=== PATIENT | female | born 1970 | race Caucasian/White ===

== ENCOUNTER 2017-12-28 21:03 | Emergency (ER) | payer OTHER, MEDICAID ==
[~2017-12-28] VITALS: Ht 168 cm; Wt 117.9 kg
[~2017-12-28 21:03] MED LIST: ATORVASTATIN CA40 MG PO; CORTEF5 MG PO; CYMBALTA60 MG PO; FLOMAX0.4 MG PO; LEVOTHYROXINE100 MC1 PO; LISINOPRIL10 MG PO; NAPROSYN375 MG PO; NORCO 5-325 TA1 EACH PO; ONDANSETRON HCL4 M2 PO; SINGULAIR 10 MG10 M1 PO; TIZANIDINE PO
[2017-12-28 21:43] LABS: URINE BILIRUBIN NEGATIVE (Negative); URINE BLOOD NEGATIVE (Negative); URINE CLARITY CLEAR; URINE COLOR YELLOW; URINE GLUCOSE-RANDOM NEGATIVE (Negative); URINE KETONES NEGATIVE (Negative); URINE LEUKOCYTES-REFLEX NEGATIVE (Negative); URINE NITRITE-REFLEX NEGATIVE (Negative); URINE PROTEIN NEGATIVE (Negative); URINE SPECIFIC GRAVITY 1.015 (1.005-1.030); URINE UROBILINOGEN 0.2 E.U./dl (0.2-1.0)
[2017-12-28] MEDS ORDERED: FLAGYL500 MG PO (22:23)
[2017-12-28 22:30] VITALS: BP 185/90
== END 2017-12-28 22:30 | disposition home or self-care (01) ==
LOC: M.ERS 21:03
PROVIDERS: Nurse Practitioner Family
DX: N76.0 Acute vaginitis (principal); B96.89 Other specified bacterial agents as the cause of diseases classified elsewhere; E03.9 Hypothyroidism, unspecified; J45.909 Unspecified asthma, uncomplicated; M79.7 Fibromyalgia; I10 Essential (primary) hypertension; Z90.49 Acquired absence of other specified parts of digestive tract; Z88.8 Allergy status to other drugs, medicaments and biological substances; Z88.5 Allergy status to narcotic agent; Z88.2 Allergy status to sulfonamides

== ENCOUNTER 2018-02-04 19:14 | Inpatient (IN) | payer OTHER ==
[~2018-02-04] VITALS: Ht 168 cm; Wt 127.9 kg
[~2018-02-04 19:14] MED LIST changes: +FLAGYL500 MG PO
[2018-02-04 19:18] VITALS: BP 126/68
[2018-02-04 19:46] LABS: ABSOLUTE EOSINOPHILS 0.2 thou/uL (0.0-0.7); ABSOLUTE LYMPHOCYTES 2.7 thou/uL (0.8-5.3); ABSOLUTE MONOCYTES 0.6 thou/uL (0.0-1.2); BASOPHILS 0.2 %; EOSINOPHILS 1.6 %; HEMATOCRIT 46.8 % (37.0-47.0); HEMOGLOBIN 15.4 gm/dL (12.0-15.0); LYMPHOCYTES 28.6 %; MCH 27.7 pg (26.0-34.0); MCHC 32.9 g/dL (28.0-37.0); MCV 84.1 fL (80.0-100.0); MONOCYTES 6.7 %; MPV 7.3 fl. (7.2-11.1); NUCLEATED RBCS 0 /100WBC; PLATELET COUNT* 380 thou/uL (150-400); POLYS 62.9 %; RBC 5.57 mil/uL (4.20-5.00); WBC 9.5 thou/uL (4.0-11.0)
[2018-02-04 19:54] LABS: CALCIUM 9.5 mg/dL (8.5-10.1); CREATININE 0.9 mg/dL (0.6-1.3); POTASSIUM 4.2 mmol/L (3.5-5.1)
[2018-02-04 20:01] LABS: ALBUMIN 3.3 g/dL (3.4-5.0); TOTAL BILIRUBIN 0.5 mg/dL (<0.1-1.0); TROPONIN-I LEVEL 0.08 ng/mL (<0.06)
[2018-02-04 21:18] LABS: CHOLESTEROL 279 mg/dL (<200); HDL CHOLESTEROL 48 mg/dL (>40); TC:HDL 5.8 Ratio (Not establshd); TRIGLYCERIDE 553 mg/dL (<150); VLDL 111 mg/dL (<40)
[2018-02-04 21:24] LABS: LDL CHOLESTEROL ND mg/dL (<100)
[2018-02-04 21:25] VITALS: BP 114/67
[2018-02-04 21:25] LABS: SERUM ASSESSMENT Slight Lipemia
[2018-02-04 21:30] VITALS: BP 133/72
[2018-02-05] VITALS (15 sets, daily range): BP systolic 118–177; BP diastolic 58–95
--- NOTE | 2018-02-05 00:30 | NUR ---
PATIENT GOT ADMITTED TONIGHT FROM THE ER TO THE TELE FLOOR IN ROOM 226. ACCOMPANIED BY ER NURSE, ON A STRETCHER AND OXYGEN VIA NC AT 2LITERS. PT IS ALERT, AWAKE, ORIENTED X4. SHE STATED THAT SHE HAS BEEN FEELING SOA SINCE 06:OOPM BEFORE SHE HEADED TO THE ER. SHE IS PRESENTLY BREATHIN REGULARLY AND UNLABORED, ON O2 NC SATURATION IS 98%. SHE DOES NOT COMPLAIN OF ANY PAIN AT ALL. VITAL SIGNS ARE WITHIN NORMAL LIMIT. ASSESSMENT PERFOREMED AND ADMISSION HX COMPLETED. REFER OT CHARTING. PT SKIN IS INTACT. IV LINE IS PATENT. SHE IS GETTING HEPARIN AT 15CC/HR WHICH STARTED IN THE ER. APPT LAB IS SCHEDULED FOR 03:00 AM. SEE ORDER. SHE HAS TROPONIN LAB DRAWED PRIOR TO COMING ON THE FLOOR. HER PREVIOUS TROPONIN LEVEL WERE RESPECTIVELY 0.08, 0.20. heR MOST RECENT TROPONIN DRWNED WHILE ON THE TELE FLOOR IS 1.31. DR MCFADDEN (CONSULT AND CARIDIOLOGY TUCKPOINTER CLEANER CAULKER ) WAS CALLED. [facility] WILDLIFE REMOVAL SPECIALIST. AWAITING CALL BACK FROM DR. MCFADDEN. PT IS ASYMPTOMATIC. NO PAIN . SINUS RYTHM ON THE MONITOR. HEART RATE IS CONTROLLED. SCDS ON, CALL LIGHT AT REACH, SCHEDULED MEDS ADMISNISTERED, PAPERS PLACED IN CHART, LAB ORDERED FOR THE MORNIMG. WILL CONTINUE TO MONITOR.
[2018-02-05 02:51] LABS: HEMATOCRIT 44.3 % (37.0-47.0); HEMOGLOBIN 14.6 gm/dL (12.0-15.0); MCH 27.7 pg (26.0-34.0); MCHC 32.9 g/dL (28.0-37.0); MCV 84.3 fL (80.0-100.0); MPV 7.2 fl. (7.2-11.1); RBC 5.25 mil/uL (4.20-5.00); RDW-CV 14.4 % (10.5-14.5)
[2018-02-05 03:29] LABS: APTT 42.2 Seconds (25.0-31.3); PROTIME 9.9 Seconds (9.20-11.50)
--- NOTE | 2018-02-05 04:25 | NUR ---
NEW TROPONIN CRITICAL LEVEL OF 3.14. DR MCFADDEN AND TIMOTHY ARE PAGED. AWAITING SHUKRI BACK. PT IS ASYMTOMATIC, VITAL SIGHS WITHN NORMAL LIMIT. SR ON THE MONITOR. HEPARIN STILL GOIG ON AT 15CC/HR. WILL E AWAITNG CALL BACK.
--- NOTE | 2018-02-05 05:59 | NUR ---
APPT LAB RESULT IS 42.2. HEPARIN DRIP RATE INCREASED BY 3 ML/HR. BOLUS OF 3.9 ML OF HEPARIN GIVEN PER PROTOCOL. CURRENT RATE IS 18ML/HR.
--- NOTE | 2018-02-05 06:35 | NUR ---
DR MCFADDEN CALLED BACK . AND SAYS HE WILL SEE THE DOCTOR THIS MORNING. NEW LAB DRAW FOR APTT ORDERED PER PROTOCOL FOR 12:00PM. PT OSMELAISSpenser ASYMPTOMATIC, SR ON THE MONITOR. WILL CONTINUE TO MONITOR.
[2018-02-05 06:46] LABS: POTASSIUM 3.9 mmol/L (3.5-5.1)
[2018-02-05 06:47] LABS: CALCIUM 8.8 mg/dL (8.5-10.1); CREATININE 0.7 mg/dL (0.6-1.3); MAGNESIUM 1.9 mg/dL (1.8-2.4)
--- NOTE | 2018-02-05 07:15 | NUR ---
ASSUMED CARE OF PT ASSESSED AND DOCUMENTED. PT IS TRACING NSR ON CARDIAC MONITER HR 77. PT IS A&O. SHE IS ON 2L OF 02. SHE C/O NECK PAIN RATES A 4 ON PAIN SCALE. SHE DENIES NEED FOR PAIN MEDICATION. PT IS A FEBRILE. SHE CONT ON HEPARIN GTT. BED IS IN LOW POSITION CALL LIGHT IS IN REACH. WM.
--- NOTE | 2018-02-05 07:50 | NUR ---
PT REFUSES MEDICATION. THE ONLY MED SHE WOULD TAKE IS SYNTHROID.
--- NOTE | 2018-02-05 08:45 | NUR ---
TOLD DR AGUIRRE ABOUT PT STATING SHE HAS AN ALLERGY TO LISENOPRIL AND IT MADE HER THROAT SWELL. PT ALSO REFUSED OTHER MEDSA SHE WAS NPO AND STATED IT WOULD MAKE HER SICK. CALLED ADMITTING LM TC ME RE ALLERGY THAT NEEDS TO BE PLACED ON RECORD.
--- NOTE | 2018-02-05 10:17 | 2DMMODE ---
[place] [address] 2 D/M-MODE ECHOCARDIOGRAM Name: JORGE DE LA GARZALIA Room: [address] IN .R.#: [id number] Admission: 02/04/18 Attend Phys: Alok Machuca, Discharge: Date of : 72 Date of Service: 02/05/18 1017 Report #: [id number] THIS REPORT FOR: //name// APPROVED REPORT Study performed: 02/05/2018 09:01:43 EXAM: Comprehensive 2D, Doppler, and color-flow Echocardiogram Patient Location: Bedside BSA: 2.24 HR: 76 bpm BP: 158/58 mmHg Other Information Study Quality: Fair Indications Chest Pain 2D Dimensions LVEF(%): 61.64 (>50%) IVSd: 11.95 (7-11mm) LVOT Diam: 20.13 (18-24mm) LVDd: 46.07 mm PWd: 11.55 (7-11mm) Ascending Ao: 31.01 (22-36mm) LVDs: 30.85 (25-40mm) Aortic Root: 30.13 mm Scott's LVEF: 61.64 % Volumes Left Atrial Volume (Systole) LA ESV Index: 15.90 mL/m2 Aortic Valve AoV Peak Andrews.: 1.11 m/s AO Peak Gr.: 4.95 mmHg LVOT Max P.38 mmHg AO Mean Gr.: 2.86 mmHg LVOT Mean P.42 mmHg LVOT Max V: 0.92 m/s AO V2 VTI: 18.62 cm LVOT Mean V: 0.54 m/s MO (VTI): 3.12 cm2 LVOT V1 VTI: 18.27 cm Mitral Valve E/A Ratio: 0.94 MV Decel. Time: 238.27 ms MV E Max Andrews.: 0.71 m/[place] [address] 2 D/M-MODE ECHOCARDIOGRAM Name: EUSEBIO DE LA GARZA Room: [address] IN [facility].#: [id number] Admission: 02/04/18 Attend Phys: Alok Machuca, Discharge: Date of : 72 Date of Service: 02/05/18 1017 Report #: [id number] MV PHT: 69.10 ms MVA (PHT): 3.18 cm2 TDI E/Lateral E': 7.89 E/Medial E': 7.89 Medial E' Andrews.: 0.09 m/s Lateral E' Andrews.: 0.09 m/s Pulmonary Valve PV Peak Andrews.: 1.18 m/s PV Peak Gr.: 5.53 mmHg Tricuspid Valve RAP Estimate: 5.00 mmHg TR Peak Gr.: 17.13 mmHg RVSP: 22.13 mmHg PA Pressure: 22.13 mmHg Left Ventricle The left ventricle is normal size. There is normal LV segmental wall motion. There is normal left ventricular wall thickness. Left ventricular systolic function is normal. LVEF is 60-65%. The left ventricular diastolic function is normal. Right Ventricle The right ventricle is normal size. The right ventricular systolic function is normal. Atria The left atrium size is normal. Interatrial septum not well visualized. The right atrium size is normal. Aortic Valve The aortic valve is normal in structure. No aortic regurgitation is present. There is no aortic valvular stenosis. Mitral Valve The mitral valve is normal in structure. There is no mitral valve regurgitation noted. No evidence of mitral valve stenosis. Tricuspid Valve The tricuspid valve is normal in structure. Trace tricuspid regurgitation. Pulmonic Valve The pulmonary valve is normal in structure. There is no pulmonic valvular [place] [address] 2 D/M-MODE ECHOCARDIOGRAM Name: EUSEBIO DE LA GARZA Room: [address] IN ..#: [id number] Admission: 02/04/18 Attend Phys: Alok Machuca, Discharge: Date of : 72 Date of Service: 02/05/18 1017 Report #: [id number] Great Vessels The aortic root is normal in size. IVC is not visualized. Pericardium There is no pericardial effusion. <Conclusion> The left ventricle is normal size. There is normal left ventricular wall thickness. Left ventricular systolic function is normal. LVEF is 60-65%. The left ventricular diastolic function is normal. <ELECTRONICALLY SIGNED> By: Albaro Chen MD, FACC 02/05/18 1017 1017 1017 Albaro Chen MD, FACC /INF
--- NOTE | 2018-02-05 11:05 | EKG ---
[place] [address] ELECTROCARDIOGRAM REPORT Name: EUSEBIO DE LA GARZA Room: [address] ADM IN .R.#: [id number] Admission: 02/04/18 Attend Phys: Alok Machuca MD Discharge: Date of : 72 Report #: [id number] THIS REPORT FOR: //name// [facility] ED Test Date: 2018-02-04 Test Time: 19:24:51 Pat Name: EUSEBIO DE LA GARZA Department: Room: Gender: F Roll Scale Man: [facility] : 1970 Requested By: Keith Wright Order Number: [id number] MD: Jack Bowen Measurements Intervals [place] Rate: 159 P: MD: QRS: 71 QRSD: 82 T: 253 QT: 293 QTc: 477 Interpretive Statements Atrial fibrillation Repol abnrm suggests ischemia, diffuse leads Baseline wander in lead(s) V2,V3,V6 Compared to ECG 05/05/2015 16:48:37 Possible ischemia now present Sinus tachycardia no longer present Electronically Signed On 02-05-2018 11:04:58 CDT by Jack Bowen [email or web address] <ELECTRONICALLY SIGNED> By: Jack Bowen MD, [facility] 02/05/18 1104 1924 1924 Jack Bowen MD, [facility] /EPI
--- NOTE | 2018-02-05 11:05 | EKG ---
[place] [address] ELECTROCARDIOGRAM REPORT Name: EUSEBIO DE LA GARZA Room: [address] IN .R.#: [id number] Admission: 02/04/18 Attend Phys: Alok Machuca MD Discharge: Date of : 72 Report #: [id number] THIS REPORT FOR: //name// [facility] ED Test Date: 2018-02-04 Test Time: 20:40:21 Pat Name: EUSEBIO DE LA GARZA Department: Room: Gender: F Director Of Extension Work: RADHA Flores : 1970 Requested By: Ted Azul Order Number: [id number] MD: Jack Bowen Measurements Intervals [place] Rate: 86 P: 18 TX: 141 QRS: 81 QRSD: 94 T: 30 QT: 392 QTc: 469 Interpretive Statements Sinus rhythm Probable left atrial enlargement Borderline ST depression, lateral leads Baseline wander in lead(s) V1,V5 Electronically Signed On 02-05-2018 11:05:28 CDT by Jack Bowen [email or web address] <ELECTRONICALLY SIGNED> By: Jack Bowen MD, [facility] 02/05/18 1105 39 39 Jack Bowen MD, [facility] /EPI
--- NOTE | 2018-02-05 12:26 | NUR ---
PT OFF UNIT. UNABLE TO SEE
--- NOTE | 2018-02-05 14:49 | NUR ---
MET WITH PT TO DISCUSS HOME SITUATION/DC PLANNING. PT LIVES WITH SPOUSE. IS INDEPENDENT AND ACTIVE. WORKS IN A [employer]. PT USES NO EQUIPMENT. STATES FEELING IMPROVED TODAY, HOPES TO GO HOME SOON. DENIES DC NEEDS. WILL FOLLOW
--- NOTE | 2018-02-05 18:46 | NUR ---
ASSUMED CARE OF PT AT APPROX 1700, RECIEVED REPORT FROM SANNA VALLE. PT A/O X4, DENIES PAIN, RIGHT WRIST CATH SITE PRESSURE DECREASED AND THEN PRESSURE DEVICE REMOVED AT APPROX 1730. NO HEMATOMA OR BLEEDING NOTED. PT USING CALL LIGHT APPROPRIALTY FOR ASSISTANCE. AM ASSESMENT REVIWED BY THIS RN AND I AGREE WITH CHARTING. WILL CONTINUE WITH PLAN OF CARE.
[2018-02-05] MEDS ORDERED: TOPROL XL100 MG PO (20:56)
[2018-02-06] VITALS: BP 168/93
[2018-02-06 04:00] VITALS: BP 157/93
--- NOTE | 2018-02-06 06:39 | NUR ---
ASSUMED CARE OF PATIENT AT 1900 THE PATIENT REMAINS SR ON THE MONITOR O2 SAT MAINTAINED ON 2L NC FOR PATIENT COMFORT DURING SHIFT PATIENT COMPLAINED OF ACUTE EPISODE OF MILD CX PAIN MIDSTERNUM TO BACK RATED AT 4/10 EKG OBTAINED REMAINED SR PRIOR TO OCCURANCE PATIENT ATE 3 STRAWBERRY JELLO 3 THICKENED LEMON WATER PER HER REQUEST THICKENED LIQUIDS NOT NECESSARY DENIES HX OF GI UPSET WITH ACIDIC FRUIT/FOODS FLAVORS ADMINISTERED HYDROCODONE, ZOFRAN AND MELATONIN AT REASSESSMENT 30 MINUTES LATER PATIENT DENIED ALL DISCOMFORT AT 0345 PATIENT COMPLAINED OF SEVERE HEADACHE TYLENOL ADMINISTERED INEEFECTIVE APPLIED COOL TOWEL PATIENT STATES MADE WORST SHE REQUEST HEAT PACK AND DECLINED OPIOD INTERVENTION IN AM PRN ZOFRAN GIVEN PATIENT IN BED RESTING CONTINUES TO BE UP ADLIB THE ROUTINE ET PRN REGIMEN CONTINUES TO BE EFFECTIVE FOR SX MANAGEMENT SAFETY INTERVENTIONS CONTINUE BED LOWERED WHEELS LOCKED CALL LIGHT IN REACH SIDE RAILS UP RESUMING OF HOME MEDICATION METOPROLOL NEEDS TO BE VERIFIED WITH PHYSICIAN REPORT GIVEN TO ONCOMING LEONARD
[2018-02-06 09:00] VITALS: BP 174/99
[2018-02-06] MEDS ORDERED: SYNTHROID100 MC1 PO (09:16)
[2018-02-06] MEDS ORDERED: ASPIR 8181 MG PO (09:16)
[2018-02-06] MEDS ORDERED: ASPIRIN325 PO (09:18)
--- NOTE | 2018-02-06 10:05 | EKG ---
[place] [address] ELECTROCARDIOGRAM REPORT Name: EUSEBIO DE LA GARZA Room: [address] ADM IN M.R.#: [id number] Admission: 02/04/18 Attend Phys: Alok Machuca MD Discharge: Date of : 72 Report #: [id number] THIS REPORT FOR: //name// [facility] Test Date: 2018-02-05 Test Time: 23:24:39 Pat Name: EUSEBIO DE LA GARZA Department: Room: [address] Gender: F Kayak Maker: GHISLAINE : 1970 Requested By: Laura Monet Order Number: [id number] Reading MD: Jack Bowen Measurements Intervals [place] Rate: 89 P: 51 VT: 136 QRS: 82 QRSD: 100 T: 8 QT: 387 QTc: 471 Interpretive Statements Sinus rhythm Compared to ECG 02/04/2018 20:40:21 ST (T wave) deviation no longer present Electronically Signed On 02-06-2018 10:05:24 CDT by Jack Bowen [email or web address] <ELECTRONICALLY SIGNED> By: Jack Bowen MD, [facility] 02/06/18 1005 2324 23 Jack Bowen MD, [facility] /EPI
--- NOTE | 2018-02-06 10:32 | CON ---
[address] [address] CONSULTATION Name: EUSEBIO DE LA GARZA Room: [address] IN M.R.#: [id number] Admission: 02/04/18 Attend Phys: Alok Machuca MD Discharge: Date of : 72 Report #: [id number] THIS REPORT FOR: //name// CC: FAM physician/PCP Alok Machuca INDICATION: AFib RVR and non-ST elevation myocardial infarction. HISTORY OF PRESENT ILLNESS: The patient is a very pleasant 47-year-old white female, originally from [place] who has been living locally for the last 10 years. She has diabetes, hyperlipidemia, hypertension, and family history of coronary artery disease. Additionally, she has hypothyroidism. She has complaints of chest discomfort, weakness, and fatigue yesterday. She was seen in the emergency room and found to be in atrial fibrillation with a rapid ventricular response rate. She was given a diltiazem bolus and placed on a drip and converted to sinus rhythm. She is presently in sinus rhythm. Her chest pain has resolved. Her troponin peaked at 3. PAST MEDICAL HISTORY: 1. Type 2 diabetes mellitus. 2. Hypertension. 3. Dyslipidemia. 4. Fibromyalgia. 5. Hypothyroidism. 6. Nephrolithiasis. 7. Asthma. 8. Hiatal hernia. 9. Nuclear radiation exposure. FAMILY HISTORY: The patient's mother had coronary artery disease. SOCIAL HISTORY: The patient does not smoke. She does not drink alcohol. REVIEW OF SYSTEMS: As per HPI, otherwise unremarkable. PHYSICAL EXAMINATION: VITAL SIGNS: Stable. Blood pressure 158/58, pulse 76 and regular. GENERAL: This is a pleasant female, in no distress. Mood and affect appropriate. HEENT: Extraocular muscles intact. Mucous membranes moist. NECK: Shows no jugular venous distention. There are no carotid bruits. CHEST: Reveals clear lung galan without wheezes, rales, or rhonchi. CARDIOVASCULAR: Reveals a regular rhythm with normal S1 and S2. I do not appreciate gallop or murmur. ABDOMEN: Reveals normal bowel sounds. The abdomen is soft and nontender. EXTREMITIES: Shows no edema. Peripheral pulses 2+ [place] [address] CONSULTATION Name: EUSEBIO DE LA GARZA Room: [address] IN [facility].#: [id number] Admission: 02/04/18 Attend Phys: Alok Machuca MD Discharge: Date of : 72 Report #: [id number] SKIN: Warm and dry. IMPRESSION AND RECOMMENDATIONS: 1. New onset atrial fibrillation with rapid ventricular response. The patient now in sinus rhythm after diltiazem drip and bolus. We will continue diltiazem orally. The patient's CHADS score is 3 for female sex, hypertension and diabetes. She would benefit from long-term anticoagulation. We will start anticoagulation after cardiac catheterization. 2. Non-ST elevation myocardial infarction. The patient has multiple risk factors for coronary artery disease. We will proceed with coronary angiography at this time. 3. Hypertension. Blood pressure mildly elevated at this time. Hopefully, will improve with the addition of diltiazem. 4. Dyslipidemia. Fasting lipid profile pending. Continue statin agent. 5. Hypothyroidism, on replacement therapy. Thyroid function studies pending. <ELECTRONICALLY SIGNED> By: Albaro Chen MD, FACC 02/06/18 1032 0853 [id number] Lonnie Chen MD, FACC /nt
[2018-02-06 12:00] VITALS: BP 147/83
[2018-02-06] MEDS ORDERED: CARDIZEM CD240 MG PO (13:01)
[2018-02-06 13:52] VITALS: BP 158/58
[2018-02-06] MEDS ORDERED: XARELTO20 MG PO (15:22)
[2018-02-06 15:55] VITALS: BP 157/85
--- NOTE | 2018-02-06 16:41 | NUR ---
ASSUMED PT CARE AT 0730, FULL ASSESMENT DONE CHARTED. PT A/O X4, DROWSY, STATES SHE DID NOT SLEEP WELL, C/O BAD LEWIS, MIGRAINE, SHE STATES SHE HAD CHEST PAIN EARLY THIS AM, IT HAS RESOLVED. PT OFFERED PAIN MEDS, DENIES THE NEED FOR THEM. SHE SPOKE TO , RECIEVED ORDER FOR IMITREX, PT REFUSED IT THIS AM, BUT SHE REQUESTED IT THIS AFTERNOON. DISCHARGE ORDERS RECIEVED, CARDIOLOGY OK WITH DC TODAY. SCRIPTS GIVEN TO PT, JANINA SAMPLES SENT HOME WITH HER. PT EDUCATED ON POST CATH CARE OF WRIST, INSTRUCTED NOT TO LIFT MORE THAN 10 LBS OR SUBMERGE IN WATER. PT UPSET ABOUT THIS DUE TO WANTING TO GO SWIMMING AND NEEDS TO USE HER RIGHT HAND FOR WORK. PT ENCOURAGED TO FOLLOW THESE INSTRUCTIONS AND SHE VERBALIZED UNDERSTANDING. PT LEFT WITH FRIEND BY MERE AT APPROX 1630.
--- NOTE | 2018-02-06 17:26 | CARD ---
[address] [address] CARDIAC CATH REPORT Name: EUSEBIO DE LA GARZA Room: [address] IN ..#: [id number] Admission: 02/04/18 Attend Phys: Alok Machuca MD Discharge: 02/06/18 Date of : 72 Report #: [id number] THIS REPORT FOR: //name// APPROVED REPORT Study performed: 02/05/2018 13:07:41 Patient Details Patient Status: In-Patient Room #: 226 The patient is a 47 year-old female Event Personnel Albaro Chen Billing Coordinator, Alok Sheets, Emperatriz Christina Monitor, Tammy Anton RN RN, Suze Polk RN drapery estimator Performed Art Access - R radial artery Left Heart Cath w/or w/o Coronaries [id number] [facility] Hemostasis with Hemoband Procedure Narrative The patient was brought electively to the Cardiac Catheterization Laboratory and was prepped and draped in a sterile manner. The right wrist was infiltrated with subcutaneous anesthesia. A Slender Glidesheath sheath was inserted into the right radial artery. Coronary angiography was performed using coronary diagnostic catheters. The right coronary system was accessed and visualized with a DCR: Rupert 4.0 5fr Diagnostic catheter. The left coronary system was accessed and visualized with a DCR: Rupert 4.0 5fr Diagnostic catheter. The left ventricle was accessed and visualized with a PC: Angled Pig 5fr catheter. Left ventricular/Aortic Valve gradient assessed via catheter pullback. Left ventriculogram was performed in EVANS projection. Closure device was deployed with a Fr Vasc-Band Lng 27cm. The patient tolerated the procedure well and there were no complications associated with the procedure. Intraoperative Conscious Sedation Sedation start time: 13:30 Case end Time: 13:52 Fentanyl 25 mcg Versed 1 mg Fluoro Time: 2.9 minutes Dose: DAP 81943 cGycm2 1125 mGy Contrast Type and Amount: Omnipaque [address] [place] [address] CARDIAC CATH REPORT Name: EUSEBIO DE LA GARZA Room: [address]#: [id number] Admission: 02/04/18 Attend Phys: Alok Machuca MD Discharge: 02/06/18 Date of : 72 Report #: [id number] Coronary Angiography The patient's coronary anatomy is right dominant. Diagnostic Cath Left Main Normal. LAD Normal proximally with minimal tenderness in plaquing in its midportion and normal distally. Diagonal 1 Minimally plaqued 10% proximally. Diagonal 2 Normal. Diagonal 3 Normal. Circumflex Normal throughout. OM1 Small in caliber and normal. OM2 Antonella branched and normal. Right Coronary Normal proximally. Minimally plaqued 10% in its midportion. Normal distally. R PDA Normal. RPLV Normal. Hemodynamics The aortic pressure is 129/76 mmHg with a mean of mmHg. [place] [address] mmHg with a mean of mmHg. The left ventricular end diastolic pressure is 23 mmHg. There was no gradient across the aortic valve upon pullback. Pullback from the left ventricle to the aorta revealed no gradient across the aortic valve. Conclusion 1. Minimal nonocclusive coronary artery disease as outlined above. 2. Normal left ventricular end diastolic pressure. 3. Normal left ventricular systolic function. Recommendations 1. Continue aggressive risk factor modification. <ELECTRONICALLY SIGNED> By: Albaro Chen MD, FACC 02/06/18 1726 25 172Michaepam Chen MD, FACC /INF
== END 2018-02-06 16:41 | disposition home or self-care (01) | DRG 281 ==
LOC: M.ERS 19:14 → M.TBA-ER 20:15 → M.2W 20:15
PROVIDERS: Emergency Medicine Emergency Medical Services; ADMIT Internal Medicine
PROC: B2111ZZ Fluoroscopy of Multiple Coronary Arteries using Low Osmolar Contrast (ICD-10-PCS; principal; 2018-02-04)
PROC: B2151ZZ Fluoroscopy of Left Heart using Low Osmolar Contrast (ICD-10-PCS; principal; 2018-02-04)
PROC: 5A2204Z Restoration of Cardiac Rhythm, Single (ICD-10-PCS; principal; 2018-02-04)
PROC: 4A023N7 Measurement of Cardiac Sampling and Pressure, Left Heart, Percutaneous Approach (ICD-10-PCS; principal; 2018-02-04)
DX: I21.4 Non-ST elevation (NSTEMI) myocardial infarction (principal); Z68.42 Body mass index [BMI] 45.0-49.9, adult; I48.91 Unspecified atrial fibrillation; J45.909 Unspecified asthma, uncomplicated; M79.7 Fibromyalgia; E78.5 Hyperlipidemia, unspecified; E03.9 Hypothyroidism, unspecified; I10 Essential (primary) hypertension; E11.9 Type 2 diabetes mellitus without complications; E66.9 Obesity, unspecified; T38.1X5A Adverse effect of thyroid hormones and substitutes, initial encounter; Y92.89 Other specified places as the place of occurrence of the external cause; Z88.6 Allergy status to analgesic agent; Z88.2 Allergy status to sulfonamides; Z88.8 Allergy status to other drugs, medicaments and biological substances; Z90.49 Acquired absence of other specified parts of digestive tract; Z79.01 Long term (current) use of anticoagulants; Z79.899 Other long term (current) drug therapy; Z87.442 Personal history of urinary calculi; Z82.49 Family history of ischemic heart disease and other diseases of the circulatory system